=== PATIENT | female | born 1990 | race Caucasian/White ===

== ENCOUNTER 2018-04-02 17:53 | Emergency (ER) | payer OTHER ==
[2018-04-02 18:17] VITALS: BP 138/83
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
== END 2018-04-02 18:39 | disposition home or self-care (01) ==
LOC: CED 17:53
DX: S00.83XA Contusion of other part of head, initial encounter (principal); S13.4XXA Sprain of ligaments of cervical spine, initial encounter; V49.49XA Driver injured in collision with other motor vehicles in traffic accident, initial encounter; Y92.410 Unspecified street and highway as the place of occurrence of the external cause

== ENCOUNTER → 2018-05-06 | Outpatient (CLI) | payer OTHER | LOC: CIMAGING 07:25 | PROVIDERS: ATTEND Family Medicine | DX: N92.0 Excessive and frequent menstruation with regular cycle (principal) | CPT/HCPCS: 76856-PO ==